=== PATIENT | male | born 1965 | race Caucasian/White ===

== ENCOUNTER 2020-03-19 17:08 | Emergency (ER) | payer OTHER ==
[~2020-03-19] VITALS: Ht 182.9 cm; Wt 118.2 kg
[2020-03-19 17:22] VITALS: BP 131/69
[2020-03-19] MEDS ORDERED: SULFAMETHOX/TRIMETH DS 800-160 MG/TABLET PO ONE (18:30)
== END 2020-03-19 18:38 | disposition home or self-care (01) ==
LOC: EMS 17:08
DX: L02.414 Cutaneous abscess of left upper limb (principal)

== ENCOUNTER 2020-03-21 08:20 | Emergency (ER) | payer OTHER ==
[~2020-03-21] VITALS: Ht 185.4 cm; Wt 118.2 kg
[2020-03-21 10:30] VITALS: BP 118/78
[2020-03-21] MEDS ORDERED: LIDOCAINE 1%/EPI 1:200,000/PF 10 ML VIAL INJ ONE (10:30)
[2020-03-22] MEDS ORDERED: antibiotics PO (12:44)
== END 2020-03-21 11:37 | disposition left against medical advice (07) ==
LOC: EMS 08:21
DX: L02.414 Cutaneous abscess of left upper limb (principal); F17.210 Nicotine dependence, cigarettes, uncomplicated; F11.90 Opioid use, unspecified, uncomplicated; I10 Essential (primary) hypertension
CPT/HCPCS: J3490

== ENCOUNTER 2020-03-22 12:37 | Emergency (ER) | payer OTHER ==
[~2020-03-22] VITALS: Ht 185.4 cm; Wt 118.2 kg
[2020-03-22] MEDS ORDERED: antibiotics PO (12:44)
[2020-03-22] MEDS ORDERED: LIDOCAINE 1%/EPI 1:200,000/PF 10 ML VIAL INJ ONE (13:15)
[2020-03-22] MEDS ORDERED: POVIDONE-IODINE 10% 15 ML SOLUTION UD TP ONE (13:15)
[2020-03-22 14:11] VITALS: BP 134/81
== END 2020-03-22 14:21 | disposition home or self-care (01) ==
LOC: EMS 12:46
DX: L03.114 Cellulitis of left upper limb (principal); F17.210 Nicotine dependence, cigarettes, uncomplicated; F11.90 Opioid use, unspecified, uncomplicated
CPT/HCPCS: 10060; 99283; J3490

== ENCOUNTER 2021-01-05 14:17 | Emergency (ER) | payer OTHER ==
[~2021-01-05] VITALS: Ht 185.4 cm; Wt 90.9 kg
[~2021-01-05 14:17] MED LIST: antibiotics PO
[2021-01-05 14:36] VITALS: BP 138/90
[2021-01-05] MEDS ORDERED: PERTUSS(ACELL),DIPH,TET VAC/PF 0.5 ML SYRINGE IM. ONE (14:45)
[2021-01-05] MEDS ORDERED: BACITRACIN 0.9 GM PACKET OINTMENT TP ONE (14:45)
[2021-01-05] MEDS ORDERED: LIDOCAINE 1% 10 ML VIAL PERC ONE (14:45)
[2021-01-05] MEDS ORDERED: SODIUM CHLORIDE 0.9% 250 ML IRRIG SOLUTION BOTTLE IRRIG ONE (15:30)
== END 2021-01-05 14:54 | disposition left against medical advice (07) ==
LOC: EMS 14:54
DX: S61.412A Laceration without foreign body of left hand, initial encounter (principal); I10 Essential (primary) hypertension; F17.210 Nicotine dependence, cigarettes, uncomplicated; X58.XXXA Exposure to other specified factors, initial encounter; Y93.89 Activity, other specified; Y92.89 Other specified places as the place of occurrence of the external cause; Y99.8 Other external cause status
CPT/HCPCS: 90715; 99281; J3490

== ENCOUNTER 2021-02-14 00:05 | Emergency (ER) | payer OTHER ==
[~2021-02-14] VITALS: Ht 182.9 cm; Wt 113.0 kg
[2021-02-14 00:10] VITALS: BP 157/98
[2021-02-14] MEDS ORDERED: PENICILLIN V POTASSIUM 500 MG TABLET PO ONE (01:45)
[2021-02-14] MEDS ORDERED: IBUPROFEN 600 MG TABLET PO ONE (01:45)
== END 2021-02-14 03:43 | disposition home or self-care (01) ==
LOC: EMS 00:07
DX: K04.7 Periapical abscess without sinus (principal); I10 Essential (primary) hypertension; F17.210 Nicotine dependence, cigarettes, uncomplicated; F11.90 Opioid use, unspecified, uncomplicated
CPT/HCPCS: 99283